=== PATIENT | female | born 1980 | race Two or more races ===

== ENCOUNTER 2016-11-07 17:14 | Emergency (ER) | payer BC, OTHER ==
[2016-11-07 17:21] VITALS: BP 116/73; PULSE 76; TEMP 98.8; BMI 22.3
--- NOTE | 2016-11-07 18:30 | PDOC ---
History of Present Illness - General Chief Complaint: Pain Stated Complaint: PAIN, ACUTE Time Seen by Provider: 11/07/16 17:58 History Source: Patient Exam Limitations: No Limitations Past History - Past Medical History Allergies/Adverse Reactions: Allergies Allergy/AdvReac Type Severity Reaction Status Date / Time No Known Allergies Allergy Verified 11/07/16 17:21 Other medical history: NONE - Psycho/Social/Smoking Cessation Hx Anxiety: No Suicidal Ideation: No Smoking History: Never smoked Hx Alcohol Use: Yes (SOCIAL) Drug/Substance Use Hx: No Substance Use Type: None *Physical Exam - Vital Signs Last Vital Signs Temp Pulse Resp BP Pulse Ox 98.8 F 76 20 116/73 100 11/07/16 17:18 11/07/16 17:18 11/07/16 17:18 11/07/16 17:18 11/07/16 17:18
--- NOTE | 2016-11-07 18:54 | PDOC ---
History of Present Illness - General Chief Complaint: Pain Stated Complaint: PAIN, ACUTE Time Seen by Provider: 11/07/16 17:58 - History of Present Illness Initial Comments: 11/07/16 23:02 [facility] Past History - Past Medical History Allergies/Adverse Reactions: Allergies Allergy/AdvReac Type Severity Reaction Status Date / Time No Known Allergies Allergy Verified 11/07/16 17:21 Other medical history: NONE - Psycho/Social/Smoking Cessation Hx Anxiety: No Suicidal Ideation: No Smoking History: Never smoked Hx Alcohol Use: Yes (SOCIAL) Drug/Substance Use Hx: No Substance Use Type: None *Physical Exam - Vital Signs Last Vital Signs Temp Pulse Resp BP Pulse Ox 98.8 F 76 20 116/73 100 11/07/16 17:18 11/07/16 17:18 11/07/16 17:18 11/07/16 17:18 11/07/16 17:18 *DC/Admit/Observation/Transfer Diagnosis at time of Disposition: Patient left before evaluation by physician - Discharge Dispostion Disposition: LEFT BEFORE REY[facility] RODRIGUEZ Condition at time of disposition: Unchanged/Unknown - Referrals Referrals: Jose A Sexton MD [Primary Care Provider] -
== END 2016-11-07 19:25 | disposition left against medical advice (07) ==
LOC: JERFT 17:14
DX: Z53.21 Procedure and treatment not carried out due to patient leaving prior to being seen by health care provider (principal)
CPT/HCPCS: 99281-25

== ENCOUNTER 2017-05-12 12:20 | Emergency (ER) | payer BC, OTHER ==
[2017-05-12 12:28] VITALS: BP 137/71; PULSE 99; TEMP 99.1; BMI 22.1
--- NOTE | 2017-05-12 13:54 | PDOC ---
History of Present Illness - General Chief Complaint: Cold Symptoms Stated Complaint: COLD SYMPTOMS,EAR BLEEDING Time Seen by Provider: 05/12/17 13:47 History Source: Patient Exam Limitations: No Limitations - History of Present Illness Initial Comments: 05/12/17 14:12 Patient is a 36-year-old female with no past medical history presenting to the emergency department with 3 days of left ear pain. Patient states that the pain got significantly worse over the past 3 days. Yesterday she had some relief of pain but she saw blood coming from her ear. States that she feels like her hearing is decreased out of the left ear. Denies fevers, chills, cough, sore throat, rhinorrhea, n/v/d. Past History - Travel Traveled outside of the country in the last 30 days: No Close contact w/someone who was outside of country & ill: No - Past Medical History Allergies/Adverse Reactions: Allergies Allergy/AdvReac Type Severity Reaction Status Date / Time No Known Allergies Allergy Verified 05/12/17 12:27 Home Medications: Ambulatory Orders Amoxicillin - [Amoxicillin 500mg Capsule -] 500 mg PO BID #14 capsule 05/12/17 Ibuprofen 800 mg PO TID #30 tablet 05/12/17 COPD: No DVT: No GI Disorders: Yes (HERNIA) - Suicide/Smoking/Psychosocial Hx Smoking History: Never smoked Hx Alcohol Use: No Drug/Substance Use Hx: No Substance Use Type: None Review of Systems - Review of Systems Able to Perform ROS?: Yes Comments:: 05/12/17 14:14 CONSTITUTIONAL: Absent: fever, chills, diaphoresis, generalized weakness, malaise, loss of appetite HEENT: Present: L ear pain and drainage Absent: rhinorrhea, nasal congestion, throat pain, throat swelling, difficulty swallowing, mouth swelling, eye pain, visual Changes CARDIOVASCULAR: Absent: chest pain, loss of consciousness, palpitations, irregular heart rate, peripheral edema RESPIRATORY: Absent: cough, shortness of breath, dyspnea with exertion, orthopnea, wheezing, stridor, hemoptysis GASTROINTESTINAL: Absent: abdominal pain, abdominal distension, nausea, vomiting, diarrhea, constipation, melena, hematochezia GENITOURINARY: Absent: dysuria, frequency, urgency, hesitancy, hematuria, flank pain, genital pain MUSCULOSKELETAL: Absent: myalgia, arthralgia, joint swelling SKIN: Absent: rash, itching, pallor HEMATOLOGIC/IMMUNOLOGIC: Absent: easy bleeding, easy bruising, lymphadenopathy, frequent infections ENDOCRINE: Absent: unexplained weight gain, unexplained weight loss, heat intolerance, cold intolerance NEUROLOGIC: Absent: headache, focal weakness or paresthesias, dizziness, unsteady gait, seizure, mental status changes, bladder or bowel incontinence PSYCHIATRIC: Absent: anxiety, depression, suicidal or homicidal ideation, hallucinations. Is the patient limited German proficient: No *Physical Exam - Vital Signs Last Vital Signs Temp Pulse Resp BP Pulse Ox 99.1 F 99 H 20 137/71 99 05/12/17 12:26 05/12/17 12:26 05/12/17 12:26 05/12/17 12:26 05/12/17 12:26 - Physical Exam Comments: 05/12/17 14:14 GENERAL: The patient is awake, alert, and fully oriented, in no acute distress. HEAD: Normal with no signs of trauma EARS: L TM red and bulging with perforation located at the area of 11 o'clock. Serous fluid in the ear canal. R TM with good cone of light, good landmarks and intact. EYES: Pupils equal, round and reactive to light, extraocular movements intact, sclera anicteric, conjunctiva clear. EXTREMITIES: Normal range of motion, no edema. NEUROLOGICAL: Normal speech, normal gait. PSYCH: Normal mood, normal affect. SKIN: Warm, Dry, normal turgor, no rashes or lesions noted. 05/12/17 23:15 Medical Decision Making - Medical Decision Making 05/12/17 23:16 patient is 36-year-old female pt with no past medical history who presents to the emergency department with an acute otitis media that has ruptured. We will treat with antibiotics and anti-inflammatories at this time. Patient given referral to ENT. We will discharge home at his time. *DC/Admit/Observation/Transfer Diagnosis at time of Disposition: Acute otitis media Qualifiers: Otitis media type: suppurative Laterality: left Recurrence: not specified as recurrent Spontaneous tympanic membrane rupture: with spontaneous rupture Qualified Code(s): H66.012 - Acute suppurative otitis media with spontaneous rupture of ear drum, left ear - Discharge Dispostion Disposition: HOME Condition at time of disposition: Stable Admit: No - Prescriptions Prescriptions: Amoxicillin - [Amoxicillin 500mg Capsule -] 500 mg PO BID #14 capsule Ibuprofen 800 mg PO TID #30 tablet - Referrals Referrals: Jose A Sexton MD [Primary Care Provider] - Jose Rafael Wisdom MD [Staff Physician] - - Patient Instructions Printed Discharge Instructions: DI for Otitis Media (Middle Ear Infection)- Child Additional Instructions: You have an ear infection. The ear infection caused a rupture of your eardrum. Please take amoxicillin twice a day for one week to treat her ear infection. You may also take ibuprofen 800 mg 3 times a day as needed for pain. Do not exceed 3000 mg a day. The ibuprofen will help with your body aches as well. You may use a warm pack to the ear to help with pain. Please follow-up with your primary care doctor this week. If your symptoms do not resolve please follow-up with ENT, Dr. Wisdom. Return to the emergency department if you have worsening pain, shortness of breath, difficulty breathing, or any new or worsening symptoms. - Post Discharge Activity Forms/Work/School Notes: Back to Work
[2017-05-12] MEDS ORDERED: IBUPROFEN 400 MG TABLET (FP) PO ONE ×2 (14:06→14:08)
== END 2017-05-12 14:11 | disposition home or self-care (01) ==
LOC: JERFT 12:20
DX: H66.012 Acute suppurative otitis media with spontaneous rupture of ear drum, left ear (principal)
CPT/HCPCS: 99281-25

== ENCOUNTER 2017-05-14 17:05 | Emergency (ER) | payer BC ==
[2017-05-14 18:38] VITALS: BP 116/76; PULSE 69; TEMP 97.2; BMI 21.2
--- NOTE | 2017-05-14 19:41 | PDOC ---
History of Present Illness - General History Source: Patient - History of Present Illness Initial Comments: 05/14/17 20:44 The patient is a 36 year old female, with a significant past medical history of otitis media and ruptured tympanic membrane (diagnosed 2 days ago), who presents to the emergency department, sent by her PCP for dizziness today after reportedly having 2 episodes of LOC yesterday. The patient states she has been unsteady on her feet since being diagnosed with ruptured on Saturday. She states she feels like the room is spinning. She reportedly felt the same room spinning sensation yesterday which resulted in her falling twice with momentary LOC each time. She denies sick contacts or recent travels. She denies chest pain, shortness of breath, headache. She denies fever, chills, nausea, vomit, diarrhea and constipation. She denies dysuria, frequency, urgency and hematuria. Allergies: NKDA PCP: Dr. Sexton <Nina Lawson - Last Filed: 05/14/17 20:44> - General History Source: Patient <Rafael Huynh - Last Filed: 05/15/17 19:31> - General Chief Complaint: Lightheaded Stated Complaint: DIZZINESS Time Seen by Provider: 05/14/17 19:41 Past History <Nina Lawson - Last Filed: 05/14/17 20:44> - Past Medical History COPD: No DVT: No GI Disorders: Yes (HERNIA) - Suicide/Smoking/Psychosocial Hx Smoking History: Never smoked Have you smoked in the past 12 months: No Information on smoking cessation initiated: No Hx Alcohol Use: No Drug/Substance Use Hx: No Substance Use Type: None <Rafael Huynh - Last Filed: 05/15/17 19:31> - Past Medical History Allergies/Adverse Reactions: Allergies Allergy/AdvReac Type Severity Reaction Status Date / Time No Known Allergies Allergy Verified 05/12/17 12:27 Home Medications: Ambulatory Orders Amoxicillin - [Amoxicillin 500mg Capsule -] 500 mg PO BID #14 capsule 05/12/17 Ibuprofen 800 mg PO TID #30 tablet 05/12/17 Meclizine HCl 25 mg PO TID #60 tablet 05/14/17 Review of Systems - Review of Systems Able to Perform ROS?: Yes Comments:: 05/14/17 20:45 CONSTITUTIONAL: Absent: fever, chills, diaphoresis, generalized weakness, malaise, loss of appetite HEENT: Absent: rhinorrhea, nasal congestion, throat pain, throat swelling, difficulty swallowing, mouth swelling, ear pain, eye pain, visual Changes CARDIOVASCULAR: Absent: chest pain, syncope, palpitations, irregular heart rate, lightheadedness , peripheral edema RESPIRATORY: Absent: cough, shortness of breath, dyspnea with exertion, orthopnea, wheezing, stridor, hemoptysis GASTROINTESTINAL: Absent: abdominal pain, abdominal distension, nausea, vomiting, diarrhea, constipation, melena, hematochezia GENITOURINARY: Absent: dysuria, frequency, urgency, hesitancy, hematuria, flank pain, genital pain MUSCULOSKELETAL: Absent: myalgia, arthralgia, joint swelling SKIN: Absent: rash, itching, pallor HEMATOLOGIC/IMMUNOLOGIC: Absent: easy bleeding, easy bruising, lymphadenopathy, frequent infections ENDOCRINE: Absent: unexplained weight gain, unexplained weight loss, heat intolerance, cold intolerance NEUROLOGIC: (+) dizziness and unsteady gait. Absent: headache, focal weakness or paresthesias, seizure, mental status changes, bladder or bowel incontinence PSYCHIATRIC: Absent: anxiety, depression, suicidal or homicidal ideation, hallucinations. <Nina Lawson - Last Filed: 05/14/17 20:44> *Physical Exam - Vital Signs Last Vital Signs Temp Pulse Resp BP Pulse Ox 97.2 F L 69 18 116/76 100 05/14/17 17:05 05/14/17 17:05 05/14/17 17:05 05/14/17 17:05 05/14/17 17:05 - Physical Exam Comments: 05/14/17 20:45 GENERAL: Well developed, well nourished. Awake and alert. No acute distress. HEENT: (+) horizontal nystagmus. Normocephalic, atraumatic. PERRLA, EOMI. No conjunctival pallor. Sclera are non-icteric. Moist mucous membranes. Oropharynx is clear. NECK: Supple. Full ROM. No JVD. Carotid pulses 2+ and symmetric, without bruits. No thyromegaly. No lymphadenopathy. CARDIOVASCULAR: Regular rate and rhythm. No murmurs, rubs, or gallops. Distal pulses are 2+ and symmetric. PULMONARY: No evidence of respiratory distress. Lungs clear to auscultation bilaterally. No wheezing, rales or rhonchi. ABDOMINAL: Soft. Non-tender. Non-distended. No rebound or guarding. No organomegaly. Normoactive bowel sounds. MUSCULOSKELETAL Normal range of motion at all joints. No bony deformities or tenderness. No CVA tenderness. EXTREMITIES: No cyanosis. No clubbing. No edema. No calf tenderness. SKIN: Warm and dry. Normal capillary refill. No rashes. No jaundice. NEUROLOGICAL: Alert, awake, appropriate. Cranial nerves 2-12 intact. Normoreflexic in the upper and lower extremities. Normal speech. Toes are down-going bilaterally. Gait is normal without ataxia. PSYCHIATRIC: Cooperative. Good eye contact. Appropriate mood and affect. <Nina Lawson - Last Filed: 05/14/17 20:44> - Vital Signs Last Vital Signs Temp Pulse Resp BP Pulse Ox 97.2 F L 69 18 116/76 100 05/14/17 17:05 05/14/17 17:05 05/14/17 17:05 05/14/17 17:05 05/14/17 17:05 <Rafael Huynh - Last Filed: 05/15/17 19:31> ED Treatment Course - LABORATORY CBC & Chemistry Diagram: 05/14/17 20:08 05/14/17 20:08 - ADDITIONAL ORDERS Additional order review: 05/14/17 20:08 RBC 4.61 MCV 90.0 MCHC 32.7 RDW 13.4 MPV 7.7 Neutrophils % 54.6 Lymphocytes % 38.2 Monocytes % 6.4 Eosinophils % 0.4 Basophils % 0.4 - Medications Given in the ED: ED Medications Discontinued Medications Generic Name Dose Route Start Last Admin Trade Name Freq PRN Reason Stop Dose Admin Meclizine HCl 25 mg 05/14/17 19:44 05/14/17 20:10 Antivert - PO 05/14/17 19:45 25 mg ONCE STA Administration <Nina Lawson - Last Filed: 05/14/17 20:44> - LABORATORY CBC & Chemistry Diagram: 05/14/17 20:08 05/14/17 20:08 <Rafael Huynh - Last Filed: 05/15/17 19:31> Medical Decision Making - Medical Decision Making 05/15/17 19:29 Dr. Huynh: The scribe's documentation has been prepared under my direction and personally reviewed by me in its entirery. I confirm that the note above accurately reflects all work, treatment, procedures, and medical decision making performed by me <Rafael Huynh - Last Filed: 05/15/17 19:31> *DC/Admit/Observation/Transfer - Attestations Scribe Attestion: 05/14/17 20:47 Documentation prepared by Nina Lawson, acting as medical cost consultant for Rafael Huynh DO. <Nina Lawson - Last Filed: 05/14/17 20:44> - Discharge Dispostion Admit: No <Rafael Huynh - Last Filed: 05/15/17 19:31> Diagnosis at time of Disposition: Vertigo - Discharge Dispostion Disposition: HOME Condition at time of disposition: Stable - Prescriptions Prescriptions: Meclizine HCl 25 mg PO TID #60 tablet - Referrals Referrals: Jose A Sexton MD [Primary Care Provider] - Jose Rafael Wisdom MD [Staff Physician] - - Patient Instructions Printed Discharge Instructions: DI for Vertigo Additional Instructions: Please follow up with your doctor and the ENT specialist referred as needed in the next two days if symptoms don't improved. take medication as directed. Return if any problems. Print Language: HEBREW - Post Discharge Activity
[2017-05-14] MEDS ORDERED: MECLIZINE HCL 25 MG TABLET (FP) PO STA ×2 (19:44→22:16)
[2017-05-14] MEDS ORDERED: MECLIZINE HCL 25 MG TABLET (FP) ONE ×2 (19:55→22:25)
[2017-05-14 20:22] LABS: BASO % 0.4 % (0-2.0); EOS % 0.4 % (0-4.5); HEMATOCRIT 41.5 % (32.4-45.2); HEMOGLOBIN 13.6 GM/dL (10.7-15.3); LYMPH % 38.2 % (8-40); MCH 29.5 pg (25.7-33.7); MCHC 32.7 g/dl (32.0-36.0); MEAN PLT VOLUME 7.7 fl (7.5-11.1); MONO % 6.4 % (3.8-10.2); NEUT % 54.6 % (42.8-82.8); PLATELET COUNT 281 K/MM3 (134-434); RBC 4.61 M/mm3 (3.60-5.2); RDW 13.4 % (11.6-15.6)
[2017-05-14 20:52] LABS: ALBUMIN 3.6 g/dl (3.4-5.0); ALK PHOS 94 U/L (45-117); ANION GAP 7 (8-16); BILIRUBIN,TOTAL 0.4 mg/dL (0.2-1.0); BLOOD UREA NITROGEN 8 mg/dL (7-18); CALCIUM 8.5 mg/dL (8.5-10.1); CHLORIDE 106 mmol/L (98-107); CO2 27 mmol/L (21-32); CREATININE 0.5 mg/dL (0.55-1.02); GLUCOSE,RANDOM 83 mg/dL (74-106); MAGNESIUM 1.9 mg/dL (1.8-2.4); POTASSIUM 3.7 mmol/L (3.5-5.1); SGOT/AST 17 U/L (15-37); SGPT/ALT 14 U/L (12-78); SODIUM 140 mmol/L (136-145); TOT PROT 6.7 g/dl (6.4-8.2)
== END 2017-05-14 22:30 | disposition home or self-care (01) ==
LOC: JER 17:05
DX: R42 Dizziness and giddiness (principal); H66.90 Otitis media, unspecified, unspecified ear
CPT/HCPCS: 36415; 70450-TC; 80053; 83735; 84703; 85025; 99283-25

== ENCOUNTER 2018-08-19 01:33 | Emergency (ER) | payer BC ==
--- NOTE | 2018-08-19 01:51 | PDOC ---
Attending Attestation - Resident Resident Name: Mansoor Rao - ED Attending Attestation I have performed the following: I have examined & evaluated the patient, The case was reviewed & discussed with the resident, I agree w/resident's findings & plan - HPI HPI: 08/19/18 02:55 37-year-old female with left sided pleuritic chest pain and pain under the left rib cage worse with deep inspiration. Patient is currently on oral contraceptives which she states she really started approximately 2 months ago. She denies recent . There is no associated calf pain fever trauma or rash. The pain has been radiating to the left scapula. - Physicial Exam PE: 08/19/18 02:56 Agree with resident's exam - Medical Decision Making 08/19/18 03:00: 37-year-old female with left-sided pleuritic chest pain CTAs consistent with bilateral pulmonary emboli Lovenox 1 mg/kg given subcutaneous in the emergency department with plans for admission for further evaluation
--- NOTE | 2018-08-19 01:52 | PDOC ---
History of Present Illness - General Stated Complaint: ABD PAIN, Time Seen by Provider: 08/19/18 01:50 - History of Present Illness Initial Comments: 08/19/18 02:20 The patient is a 37 year old 3 week female who presents for evaluation of abdominal pain. The patient states that she had a recent miscarriage 1 month ago. She states that she had a beta-hcg on 08/11/18 that was 400 and a repeat on 08/14/18 at 1400. She notes this evening post-coital lower abdominal pain prompting her presentation to the ED for further evaluation. She describes the pain as crampy in nature but otherwise denies fevers, chills, SOB , chest pain, nausea, vomiting, vaginal bleeding, vaginal discharge, or changes with urination or bowel movements. Past History - Past Medical History Allergies/Adverse Reactions: Allergies Allergy/AdvReac Type Severity Reaction Status Date / Time No Known Allergies Allergy Verified 08/19/18 02:12 Home Medications: Ambulatory Orders Amoxicillin - [Amoxicillin 500mg Capsule -] 500 mg PO BID #14 capsule 05/12/17 Ibuprofen 800 mg PO TID #30 tablet 05/12/17 Meclizine HCl 25 mg PO TID #60 tablet 05/14/17 COPD: No DVT: No GI Disorders: Yes (HERNIA) - Suicide/Smoking/Psychosocial Hx Smoking History: Never smoked Have you smoked in the past 12 months: No Hx Alcohol Use: No Drug/Substance Use Hx: No Substance Use Type: None Review of Systems - Review of Systems Comments:: 08/19/18 02:23 Constitutional: No fevers, chills, fatigue, malaise HEENT: No Rhinorrhea, nasal congestion, visual changes Cardiovascular: No chest pain, syncope, palpitations, lightheadedness Respiratory: No Cough, SOB, Hemoptysis, Gastrointestinal: Lower abdominal pain. No Nausea, Vomiting, Constipation, Diarrhea, Melena Genitourinary: No Dysuria, Frequency, Urgency, Hesitancy, Hematuria, Flank pain Musculoskeletal: No Myalgia, arthralgia Skin: No rashes, itching, bruising, pallor Neurologic: No Headache, Dizziness, Numbness, Weakness, or Tingling Psychiatric: No Hallucinations. No SI or HI *Physical Exam - Physical Exam Comments: 08/19/18 02:25 General Appearance: Nourished. No Apparent Distress HEENT: No Pharyngeal Erythema, Tonsillar Exudate, Tonsillar Erythema Neck: No Cervical Lymphadenopathy Respiratory/Chest: Lungs Clear, Normal Breath Sounds. No Crackles, Rales, Rhonchi, Wheezing Cardiovascular: Regular Rhythm, Regular Rate. No Murmur, Gallops, Rubs Gastrointestinal/Abdominal: Normal Bowel Sounds, Soft. Mild lower abdominal discomfort with palpation. No Guarding, Rebound, Pelvic Exam: Normal External Exam, Closed Cervical Os. No Vaginal bleeding or discharge Musculoskeletal: No CVA Tenderness Extremity: Normal Capillary Refill Integumentary: Normal Color, Dry, Warm Neurologic: Fully Oriented, Alert, Normal Mood/Affect, Normal Response, ED Treatment Course - LABORATORY CBC & Chemistry Diagram: 08/19/18 02:35 08/19/18 02:35 - RADIOLOGY Radiology Studies Ordered: Category Date Time Status TRANSVAGINAL US PREG [US] Stat Ultrasound 08/19/18 01:47 Ordered Medical Decision Making - Medical Decision Making 08/19/18 02:49 The patient is a 37 year old 3 week female who presents for evaluation of abdominal pain. Differential includes but is not limited to: Ovarian cysts, Ectopic, Infectious, Metabolic derangement. Given the patient's history and physical exam, we will obtain a cbc, cmp, beta-quant, transvaginal US, to evaluate further. We will treat with tylenol and continue to monitor and reassess while here in the ED. 08/19/18 04:25 CBC, cmp are unremarkable. Transvaginal US demonstrates no visible intrauterine and bilateral ovarian cysts; unable to r/o ectopic as preliminarily read by our chain maker loom control radiologist. Patient's beta-hcg is 7100. We discussed the case with the patient's OB covering Dr. Leigh ( covering for Dr. Jose Roberto Balderrama) who stated that given the patient's beta-hcg level and no visible intrautrine , the patient should be treated as a presumed ectopic and treated with methotrexate with OB follow up. We discussed the results and recommended plan with the patient who voiced understanding and refusing methotrexate at this time and would prefer to follow up with her OB. The patient has requested to leave the ED against medical advice. I believe this patient is of sound mind and competent to refuse medical care. The patient is responding and asking questions appropriately. The patient is oriented to person, place and time. The patient is not psychotic, delusional, suicidal, homicidal or hallucinating. The patient demonstrates a normal mental capacity to make decisions regarding their healthcare. The patient is clinically sober and does not appear to be under the influence of any illicit drugs at this time. The patient has been advised of the risks, in layman terms, of leaving AMA which include, but are not limited to cardiac arrest, severe infection, dehydration, myocardial infarction, arrhythmia, stroke , respiratory failure, , coma, permanent disability, loss of current lifestyle, delay in diagnosis. Alternatives have been offered - the patient remains steadfast in their wish to leave. The patient has been advised that should they change their mind they are welcome to return to this hospital, or any other, at any time. The patient understands that in no way does an AMA discharge mean that I do not want them to have the best medical care available. To this end, I have provided appropriate prescriptions, referrals, and discharge instructions. Pt will follow up with her OB with reevaluation. Return precautions advised, call 911 immediately if severe life threatening symptoms or concerns.. Pt has verbalized understanding of information provided, questions answered. *DC/Admit/Observation/Transfer Diagnosis at time of Disposition: Pelvic pain affecting Qualifiers: Trimester: unspecified trimester Qualified Code(s): O26.899 - Other specified related conditions, unspecified trimester; R10.2 - Pelvic and perineal pain - Discharge Dispostion Disposition: AGAINST MEDICAL ADVICE Condition at time of disposition: Stable - Referrals Referrals: Jose A Sexton MD [Primary Care Provider] - Jose Roberto Balderrama [Non Staff, Medical] - - Patient Instructions Printed Discharge Instructions: DI for Pelvic Pain Additional Instructions: 1) Please follow-up with your OB in the next 1-3 days. Please call tomorrow to schedule a follow up appointment. If you cannot follow up with your doctor within 1 week please return to the Emergency Department for any urgent issues. 2) Your lab results show that your Beta-HCG is 7100. Your US does not show any intrauterine . We are recommending treatment with Methotrexate as we are concerned that you likely have an ectopic . You are declining treatment at this time and are to follow up with your OB. 3) If you have any worsening of symptoms or any other concerns please return to the ER immediately. Return if worsening symptoms including fevers, headache, vomiting, visual or hearing disturbances, abdominal pain, chest pain, shortness of breath, syncope, dehydration, inability to take things by mouth/vomiting, altered mental status, or worsening concerning symptoms. 4) Please continue taking your home medications as directed. - Post Discharge Activity
[2018-08-19] MEDS ORDERED: ACETAMINOPHEN 1000 MG/100 ML VIAL (NON FORMULARY) IVPB ONE (02:12)
[2018-08-19 02:14] VITALS: BP 107/68; PULSE 77; TEMP 98; BMI 21.6
[2018-08-19] MEDS ORDERED: ACETAMINOPHEN INJECTION 100 ML IVPB ONE (02:26)
[2018-08-19 03:00] LABS: BASO % 0.5 % (0-2.0); EOS % 1.9 % (0-4.5); HEMATOCRIT 38.7 % (32.4-45.2); LYMPH % 36.9 % (8-40); MCH 30.5 pg (25.7-33.7); MCHC 33.6 g/dl (32.0-36.0); MEAN CELL VOLUME 90.8 fl (80-96); MEAN PLT VOLUME 7.8 fl (7.5-11.1); MONO % 6.2 % (3.8-10.2); NEUT % 54.5 % (42.8-82.8); PLATELET COUNT 304 K/MM3 (134-434); RBC 4.26 M/mm3 (3.60-5.2); RDW 13.5 % (11.6-15.6); WHITE BLOOD COUNT 11.7 K/mm3 (4.0-10.0)
[2018-08-19 03:37] LABS: ALBUMIN 3.4 g/dl (3.4-5.0); ALK PHOS 66 U/L (45-117); ANION GAP 9 MMOL/L (8-16); BILIRUBIN,TOTAL 0.3 mg/dL (0.2-1); BLOOD UREA NITROGEN 20 mg/dL (7-18); CALCIUM 8.8 mg/dL (8.5-10.1); CHLORIDE 105 mmol/L (98-107); CO2 21 mmol/L (21-32); CREATININE 0.6 mg/dL (0.55-1.3); GLUCOSE,RANDOM 114 mg/dL (74-106); POTASSIUM 4.1 mmol/L (3.5-5.1); SGOT/AST 20 U/L (15-37); SGPT/ALT 17 U/L (13-61); SODIUM 134 mmol/L (136-145); TOT PROT 6.6 g/dl (6.4-8.2)
--- NOTE | 2018-08-19 04:27 | PDOC ---
Attending Attestation - Resident Resident Name: Mansoor Rao - ED Attending Attestation I have performed the following: I have examined & evaluated the patient, The case was reviewed & discussed with the resident, I agree w/resident's findings & plan - HPI HPI: 37-year-old female with known complaining of pelvic pain after intercourse. She had a recent miscarriage involving a twin gestation several months ago. There is no associated fever or vomiting. She denies vaginal bleeding. 08/19/18 04:21 - Physicial Exam PE: 08/19/18 04:27 Agree with resident's exam - Medical Decision Making 08/19/18 04:28 37-year-old female agree with resident's exam 37-year-old female with pelvic pain, post choroidal and recent positive test Ultrasound shows no evidence of intrauterine Beta quantitative level is above 7000 Case discussed with patient's OTHER [employer]ORTS [employer]CTOR team at [facility] who recommends methotrexate and office follow-up with presumed diagnosis of ectopic Patient states that she will refuse at this time and would prefer to follow-up with her regular doctor before taking medication She will be signing out AGAINST MEDICAL ADVICE at this time and has been made aware of all of the risks of delayed diagnosis including and permanent disability Patient is alert and oriented 4, she is aware of her care plan and has the ability to refuse
== END 2018-08-19 04:57 | disposition left against medical advice (07) ==
LOC: JER 01:33
DX: O26.891 Other specified pregnancy related conditions, first trimester (principal); R10.2 Pelvic and perineal pain; Z3A.01 Less than 8 weeks gestation of pregnancy
CPT/HCPCS: 36415; 76801-TC; 76830-TC; 80053; 84702; 85025; 99282-25; J0131

== ENCOUNTER 2018-09-03 13:56 | Emergency (ER) | payer BC ==
--- NOTE | 2018-09-03 14:07 | PDOC ---
Rapid Medical Evaluation Time Seen by Provider: 09/03/18 14:05 Medical Evaluation: Allergies Allergy/AdvReac Type Severity Reaction Status Date / Time No Known Allergies Allergy Verified 08/19/18 02:12 09/03/18 14:05 HPI: Neck pain + PREG Took Tylenol pain x3 days PE: Decreased ROM neck ORDERS: Discharge Disposition - Diagnosis Cervical strain - Referrals - Patient Instructions - Post Discharge Activity
[2018-09-03 14:09] VITALS: BP 127/74; PULSE 89; TEMP 98; BMI 22.1
[2018-09-03] MEDS ORDERED: LIDOCAINE 5% TOPICAL PATCH TP ONE (14:39)
[2018-09-03] MEDS ORDERED: LIDOCAINE 5% TOPICAL PATCH ONE (14:43)
--- NOTE | 2018-09-03 14:48 | PDOC ---
History of Present Illness - General Chief Complaint: Pain, Acute Stated Complaint: NECK PAIN Time Seen by Provider: 09/03/18 14:05 History Source: Patient - History of Present Illness Timing/Duration: other Severity: moderate Past History - Past Medical History Allergies/Adverse Reactions: Allergies Allergy/AdvReac Type Severity Reaction Status Date / Time No Known Allergies Allergy Verified 09/03/18 14:06 Home Medications: Ambulatory Orders Acetaminophen [Tylenol -] 1,000 mg PO Q6H #30 tablet 09/03/18 Lidocaine 5% Patch [Lidoderm Patch -] 1 patch TP DAILY #7 patch 09/03/18 COPD: No DVT: No GI Disorders: Yes (HERNIA) - Immunization History Immunization Up to Date: Yes - Suicide/Smoking/Psychosocial Hx Smoking History: Never smoked Have you smoked in the past 12 months: No Information on smoking cessation initiated: No Hx Alcohol Use: No Drug/Substance Use Hx: No Substance Use Type: None Review of Systems - Review of Systems Constitutional: No: Chills, Fever HEENTM: No: Blurred Vision ABD/GI: No: Nausea, Vomiting, Abdominal cramping : No: Burning, Dysuria, Discharge, Flank Pain Musculoskeletal: Yes: Neck Pain. No: Back Pain Neurological: No: Numbness, Tingling, Weakness *Physical Exam - Vital Signs Last Vital Signs Temp Pulse Resp BP Pulse Ox 98.0 F 89 127 H 127/74 100 09/03/18 14:07 09/03/18 14:07 09/03/18 14:07 09/03/18 14:07 09/03/18 14:07 - Physical Exam General Appearance: Yes: Appropriately Dressed, Moderate Distress HEENT: positive: Normal Voice Neck: positive: Tender (along R sternocleidomastoid muscle, pain to site w/ ROM) , Supple. negative: Lymphadenopathy (R), Lymphadenopathy (L) Respiratory/Chest: negative: Respiratory Distress Integumentary: positive: Dry, Warm Neurologic: positive: Fully Oriented, Alert, Normal Mood/Affect Medical Decision Making - Medical Decision Making 09/03/18 14:43 37-year-old female, currently 7 weeks with no issues with so far, here with right-sided neck pain that started after suddenly turning to look behind her 3 days ago. Pain located to right side of neck and radiates into head, worse with movement. Otherwise no ESTEVES, dizziness or visual changes. Taking Tylenol with no relief. See exam Neck strain Not improving w/ tylenol No able to give nsaids or narcs as pt currently -will dc w/ lidoderm, extra-strength tylenol -OB f/u for further management as needed 09/03/18 14:50 *DC/Admit/Observation/Transfer Diagnosis at time of Disposition: Cervical strain Qualifiers: Encounter type: initial encounter Qualified Code(s): S16.1XXA - Strain of muscle, fascia and tendon at neck level, initial encounter - Discharge Dispostion Disposition: HOME Condition at time of disposition: Improved - Prescriptions Prescriptions: Acetaminophen [Tylenol -] 1,000 mg PO Q6H #30 tablet Lidocaine 5% Patch [Lidoderm Patch -] 1 patch TP DAILY #7 patch - Referrals Referrals: Jose A Sexton MD [Primary Care Provider] - - Patient Instructions Printed Discharge Instructions: DI for Neck Pain Additional Instructions: The cause of your neck pain is most likely muscular. Take Tylenol and use Lidoderm patch as prescribed. If pain is not improving, please follow-up with your OB for further management - Post Discharge Activity
[2018-09-03] MEDS ORDERED: LIDOCAINE PATCH REMOVAL MC SCH (22:00)
== END 2018-09-03 15:04 | disposition home or self-care (01) ==
LOC: JERFT 13:56
DX: O99.89 Other specified diseases and conditions complicating pregnancy, childbirth and the puerperium (principal); S16.1XXA Strain of muscle, fascia and tendon at neck level, initial encounter; X50.9XXA Other and unspecified overexertion or strenuous movements or postures, initial encounter; Y93.89 Activity, other specified; Y92.89 Other specified places as the place of occurrence of the external cause; Y99.8 Other external cause status; Z3A.01 Less than 8 weeks gestation of pregnancy
CPT/HCPCS: 99281-25